=== PATIENT | female | born 1950 | race Caucasian/White ===

== ENCOUNTER 2020-01-29 19:50 | Emergency (ER) | payer MEDICARE ==
[~2020-01-29] VITALS: Ht 172.7 cm; Wt 137.9 kg
--- OUTSIDE RECORDS SUMMARY | 2020-01-29 19:52 | XMS REPORT | Clinical Summary ---
Author Author [facility] Organization [facility] Address Unknown Phone Unavailable Care Team Providers Care Water Plant Pump Operator Name Role Phone Jose Armando Davis MD PCP [phone] Allergies Comments Active Allergy Reactions Severity Noted Date Morphine GI 08/26/2019 Intolerance Medications End Date Status Medication Sig Dispensed Refills Start Date Active carvedilol (COREG) 25 MG Take 25 mg by 0 08/16 tablet mouth 2 (two) 9 times a day. Active hydroCHLOROthiazide Take 25 mg by 0 (HYDRODIURIL) 25 MG mouth every 9 tablet morning. Active NOVOLOG FLEXPEN U-100 ADM 30 UNI SC 1 07/19/20 1 INSULIN 100 unit/mL (3 TID 9 mL) insulin pen Active LANTUS SOLOSTAR U-100 ADM 160 UNI 6 07/30/20 1 INSULIN 100 unit/mL SC IN THE 9 injection (pen) MORNING UTD Active losartan (COZAAR) 100 MG Take 100 mg 3 08/08 tablet by mouth 9 daily. Active NIFEdipine CC (ADALAT CC) Take 30 mg by 0 07/27 30 MG 24 hr tablet mouth 2 (two) 9 times a day. Active HUMALOG KWIKPEN INSULIN INJECT 25 3 100 unit/mL injection pen UNITS SC TID 9 Active BD ULTRA-FINE MINI PEN U UTD FIVE 3 01 NEEDLE 31 gauge x 3/16" TIMES DAILY 9 needle 08/27/2019 diazePAM (VALIUM) 5 MG Take 1 tablet 1 tablet 0 1 tablet (5 mg total) 9 by mouth every 6 (six) hours as needed for anxiety (30 mins prior to MRI) for up to 1 day. Active Problems Not on file Encounters Care Team Description Date Type Specialty Romulo Dorado MD 09/19/2019 Telephone Gynecologic Oncolog y Romulo Dorado MD 08/26/2019 Lab Lab Romulo Dorado MD Endometrial cancer (HCC) (Primary Dx); Cervical mass 08/26/2019 Office Visit Gynecologic Oncolog y Rakesh Carrillo MD 07/15/2019 Documentation Quality Rakesh Crarillo MD 04/10/2019 Documentation Quality after 01/28/2019 Family History Medical History Relation Name Comments Bone cancer Sister Uterine cancer Sister Relation Name Status Comments Sister Social History Date Tobacco Use Types Packs/Day Years Used Never Smoker Smokeless Tobacco: Never Used Drinks/Week oz/Week Comments Alcohol Use Never Alcohol Habits Answer Date Recorded How often do you have a drink containing alcohol? Never 08/26/2019 How many drinks containing alcohol do you have on No t asked a typical day when you are drinking? How often do you have six or more drinks on one Not asked occasion? Sex Assigned at Date Recorded Not on file Industry Job Start Date Occupation Not on file Not on file Not on file Travel End Travel History Travel Start No recent travel history available. Last Filed Vital Signs Reading Time Taken Comments Vital Sign 154/67 08/26/2019 2:07 PM HADOOP ADMINISTRATOR Blood Pressure 89 08/26/2019 2:07 PM HADOOP ADMINISTRATOR Pulse - - Temperature - - Respiratory Rate - - Oxygen Saturation - - Inhaled Oxygen Concentration 137 kg (303 lb) 08/26/2019 2:07 PM HADOOP ADMINISTRATOR Weight 172.7 cm (5' 8") 08/26/2019 2:07 PM HADOOP ADMINISTRATOR Height 46.07 08/26/2019 2:07 PM HADOOP ADMINISTRATOR Body Mass Index Plan of Treatment Health Maintenance Due Date Last Done Comments DIABETIC RETINAL EYE EXAM 1949 DIABETIC FOOT EXAM 1959 BREAST CANCER SCREENING 1999 COLONOSCOPY SCREENING 1999 SHINGLES VACCINES (#1) 1999 65+ PNEUMOCOCCAL VACCINE 2014 (1 of 2 - PCV13) INFLUENZA VACCINE 04/25/2020 Procedures Comments Procedure Name Priority Date/Time Associated Diag nosis BIOPSY CERVIX Routine 08/26/2019 Cervical mass 3:00 PM HADOOP ADMINISTRATOR SURGICAL PATHOLOGY Routine 08/26/2019 REQUEST 8:43 AM HADOOP ADMINISTRATOR HEMOGLOBIN A1C Routine 05/13/2019 after 01/28/2019 Results * Biopsy cervix (08/26/2019 3:00 PM HADOOP ADMINISTRATOR) Narrative Performed At Romulo Dorado MD 09/10/2019 11:01 A M Biopsy cervix Date/Time: 08/26/2019 10:59 AM Performed by: Romulo Dorado MD Authorized by: Romulo Dorado MD Consent: Verbal consent obtained. Consent given by: patient Patient understanding: patient states u nderstanding of the procedure being performed Patient consent: the patient's understa nding of the procedure matches consent given Procedure consent: procedure consent ma tcprasanna procedure scheduled Patient identity confirmed: verbally wi th patient Local anesthesia used: no Anesthesia: Local anesthesia used: no Sedation: Patient sedated: no Comments: Cervical biopsy obtained with good hemostasis * Surgical pathology request (08/26/2019 8:43 AM HADOOP ADMINISTRATOR) [facility] DEPARTMENT OF PATHOLOGY AND GENOMIC MEDICINE Surgical See link below for PDF Lab [facility] DEPART [facility] pathology Report OF PATHOLOGY report AND GENOMIC MEDICINE Result status This is Final Report for [facility] DEPARTAZ NT [id number] OF PATHOLOGY AND GENOMIC MEDICINE Specimen Performing Organization Address City/State/[facility] Ph one Number [facility] DEPARTMENT OF [address] [place] [id number] PATHOLOGY AND GENOMIC MEDICINE * Hemoglobin A1c (05/13/2019) Hemoglobin A1C 7.7 % Specimen Blood after 01/28/2019 Insurance Type Payer Benefit Subscriber ID Effective Phone Address Plan / Dates Group O [employer] CIGNA xxxxxxxx [id number] [employer] resent [facility] MCR ADV Advance Directives For more information, please contact: [phone] 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
--- OUTSIDE RECORDS SUMMARY | 2020-01-29 19:52 | XMS REPORT | Encounter Summary ---
Author Organization Unknown Address [address] [place] [address] Phone [phone] Care Team Providers Care Classification Counselor Name Role Phone Dr. Jose Armando Davis 3 [phone] Reason for Visit Type II diabetes mellitus uncontrolled; Essential hypertension; diabetic foot exam; other - see typed reason Instructions 1. Morbid obesity learning about healthy weight 2. Screening for osteoporosis 3. Screening for malignant neoplasm of b reast 4. Vaccine refused by patient 5. Influenza vaccination declined 6. Screening for malignant neoplasm of c olon 7. Essential hypertension 8. Hyperlipidemia high cholesterol: care instructions lipid panel, serum 9. Type II diabetes mellitus uncontrolle d type 2 diabetes: care instructions HbA1c (hemoglobin A1c), blood microalbumin/creatinine, mass ratio, u rine 10. Endometrial carcinoma 11. Chronic kidney disease stage 3 12. Cellulitis of lower leg Bactrim DS 800 mg-160 mg tablet wound care referral Discussion Note will refer to wound care Plan of Care Patient Instructions continue all meds carvedilol/nifedipine qd Reminders Provider Appointments Return to Office on or around 02/08/2020 Eulogio Adams MD Lab HbA1C (Hemoglobin a1C), Blood 11/11/2019 [facility] Medical - Laboratory Microalbumin/creatinine, Mass Ratio, Urine 11/11 [facility] Medical - Laboratory Lipid Panel, Serum 11/11/2019 On License Of [facility] - Laboratory Referral Wound Care Referral 11/11/2019 Procedures None recorded. Surgeries None recorded. Imaging None recorded. Medications Name Start Date -81 daily Bactrim DS 800 mg-160 mg tablet Take 1 tablet every 12 hours by oral route. carvedilol 25 mg tablet Take 1 tablet twice a day by oral route. FreeStyle Lite Strips Take 1 strip 4 times a day by miscell. route for 30 days. hydrochlorothiazide 25 mg tablet TAKE 1 TABLET BY MOUTH EVERY DAY IN THE MORNING Lantus Solostar U-100 Insulin 100 unit/m L (3 mL) subcutaneous pen ADMINISTER 160 UNITS UNDER THE SKIN IN THE MORNING DIRECTED losartan 100 mg tablet TAKE 1 TABLET BY MOUTH EVERY DAY nifedipine ER 30 mg tablet,extended rele ase Take 1 tablet every day by oral route. Novolog Flexpen U-100 Insulin aspart 100 unit/mL (3 mL) subcutaneous Inject 90 units 3 times a day by sub-q route. 11/11/2019 triamcinolone acetonide 0.1 % topical cr eam APPLY A THIN LAYER TO THE AFFECTED AREA(S) BY TOPICAL ROUTE 2 TIMES PER DAY TRUEplus Pen Needle 31 gauge x 3/16" Take 1 needle 4 times a day by miscell. route. Medications Administered None recorded. Vitals Height Weight BMI Blood Pressure 5 ft 7.5 in 295 lbs 45.5 kg/m2 136/66 mm[Hg] Results Lab Results None recorded. Allergies Code Code System Name Reaction Severity Status Onset 7052 RxNorm Morphine Dizziness Mild Active Problems Name Status Onset Date Source Hyperlipidemia Active 02/11/2015 Type II Diabetes Mellitus Uncontrolled Active 5 Essential Hypertension Active 10/22/2015 Obstructive Sleep Apnea Syndrome Active 12/04/2015 Body Mass Index 40+ - Severely Obese Active 02/08/2017 Chronic Kidney Disease Stage 3 Active 10/09/2018 Myocardial Infarction Active 05/14/2019 Congestive Heart Failure Active 05/14/2019 Endometrial Carcinoma Active 09/21/2019 Hearing Loss Active 09/21/2019 Urinary Incontinence Active 09/21/2019 Anemia Active 10/19/2019 Procedures Date Name Performed by 09/25/2018 Extraction of Cataract Information not a vailable 09/25/2014 Eye Surgery Information not avai lable Vaccine List None recorded. Social History Tobacco Smoking Status Never Smoker Past Encounters 11/11/2019 Morbid Obesity; Screening for Osteoporosis; Screening for Malignant Neoplasm of Breast; Vaccine Refused by Patient; Influenza Vaccination Declined; Screening for Malignant Neoplasm of Colon; Essential Hypertension; Hyperlipidemia; Type II Diabetes Mellitus Uncontrolled; Endometrial Carcinoma; Chronic Kidney Disease Stage 3; Cellulitis of Lower Leg Eulogio Adams MD: [address] [place] [phone], Ph. History of Present Illness Note:f/u chronic conditions compliant with meds ,fbs 140's<div>followed oncologist q 3 w uterine cancer iv infusions recent lab-ckd 3</div><div>c/o 6 month h/o bl fore leg infection</div> Review of Systems:ROS as noted in the HPI Review of Systems None recorded. Physical Exam General Adult Exam (male) Reported By: Patient Constitutional: General Appearance: healthy- appearing, well-nourished, well- developed. Level of Distress: NAD. Ambulation: ambulating normally Psychiatric: Insight: good judgement. Men varun Status: active and alert, normal mood, normal affect. Orientation: to time, to place, to person. Memory: recent memory normal, remote memory normal Head: Head: normocephalic, atrauma tic ENMT: Ears: no lesions on external ear, EACs clear, TMs clear, TM mobility normal. Hearing: no hearing loss, Rinne AC>BC. Nose: no lesions on external nose, nares patent, no septal deviation, nasal passages clear, no sinus tenderness, no nasal discharge. Lips, Teeth, and Gums: no mouth or lip ulcers, no bleeding gums, normal dentition. Oropharynx: moist mucous membranes, no erythema, no exudates, tonsils not enlarged Neck: Neck: supple, trachea midlin e, no masses, FROM. Lymph Nodes: no cervical LAD, no supraclavicular LAD, no axillary LAD, no inguinal LAD. Thyroid: no enlargement, non-tender, no nodules Lungs: Respiratory effort: no dyspn ea. Percussion: no dullness, flatness, or hyperresonance. Auscultation: breath sounds normal, good air movement, CTA except as noted, no wheezing, no rales/crackles, no rhonchi Cardiovascular: Apical Impulse: not displace d. Heart Auscultation: RRR, normal S1, normal S2, no murmurs, no rubs, no gallops. Neck vessels: no carotid bruits. Pulses including femoral / pedal: normal throughout Skin: Inspection and palpation: ; bilat fore leg cellulitis
--- OUTSIDE RECORDS SUMMARY | 2020-01-29 19:52 | XMS REPORT | Encounter Summary ---
Author Organization Unknown Address [address] [place] [id number] Phone [phone] Care Team Providers Care Launch Operator Name Role Phone Dr. Jose Armando Davis 3 [phone] Reason for Visit Type II diabetes mellitus uncontrolled; vaginal problem Instructions 1. Abnormal vaginal bleeding gynecology referral 2. Type II diabetes mellitus uncontrolle d BD Ultra-Fine Mini Pen Needle 31 gauge x 3/16" type 2 diabetes: care instructions Novolog Flexpen U-100 Insulin aspart 1 00 unit/mL (3 mL) subcutaneous 3. Body mass index 30+ - obesity body mass index: care instructions learning about healthy weight 4. Anemia ferrous sulfate 325 mg (65 mg iron) ta blet Discussion Note: None recorded. Plan of Care Reminders Provider Appointments None recorded. Lab None recorded. Referral Gynecology Referral 07/17/2019 Procedures None recorded. Surgeries None recorded. Imaging None recorded. Medications Name Start Date BD Ultra-Fine Mini Pen Needle 31 gauge x 3/16" USE FIVE TIMES DAILY DIRECTED ferrous sulfate 325 mg (65 mg iron) tabl et Take 1 tablet twice a day by oral route. freestyle mis lancets freestyle mis lite freestyle calderon lite FreeStyle Lite Strips Take 1 strip 4 times a day by miscell. route for 30 days. hydrochlorothiazide 25 mg tabs lantus solostar 100 unit/ml sopn 160U QD losartan 100 mg tablet TAKE 1 TABLET BY MOUTH EVERY DAY nifedipine ER 30 mg tablet,extended rele ase TAKE 1 TABLET BY MOUTH TWICE DAILY Novolog Flexpen U-100 Insulin aspart 100 unit/mL (3 mL) subcutaneous [id number] UNITS UNDER THE SKIN THREE TIMES DAILY ofloxacin 0.3 % soln prednisolone acetate 1 % susp triamcinolone acetonide 0.1 % crea triamcinolone acetonide 0.1 % topical cr eam APPLY A THIN LAYER TO THE AFFECTED AREA(S) BY TOPICAL ROUTE 2 TIMES PER DAY Medications Administered None recorded. Vitals Height Weight BMI Blood Pressure 5 ft 7.5 in 307 lbs 47.4 kg/m2 130/54 mm[Hg] Results Lab Results None recorded. Allergies [...] Active 05/14/2019 Congestive Heart Failure Active 05/14/2019 Procedures Date Name Performed by 09/25/2018 Extraction of Cataract Information not a vailable 09/25/2014 Eye Surgery Information not avai lable Vaccine List None recorded. Social History Tobacco Smoking Status Never Smoker Past Encounters 07/17/2019 Abnormal Vaginal Bleeding; Type II Diabetes Mellitus Uncontrolled; Body Mass Index 30+ - Obesity; Anemia Edita Cordero MD: [facility], [place] [phone], Ph. History of Present Illness Note:Pt here with c/o vag bleeding for few months. she notes that it dark. she had gone through menopause in her 50s. She has hx fibroid uterus . she was supposed to have surgery in [place] when she was living in 2011. she did not have any bleeding for all these years but has noticed it in the last few months. <div>HER BG this am was 109. she thinks the novolog is helping her</div> Review of Systems:ROS as noted in the HPI Review of Systems None recorded. Physical Exam General Adult Exam (Female) Reported By: Patient Shingle Packer: Shingle Packer: present Constitutional: General Appearance: healthy- appearing Psychiatric: Insight: good judgement. Men varun Status: active and alert. Orientation: to time Head: Head: normocephalic Neck: Neck: supple. Lymph Nodes: n o cervical LAD. Thyroid: no enlargement Lungs: Respiratory effort: no dyspn ea. Auscultation: breath sounds normal Cardiovascular: Heart Auscultation: RRR. Pul ses including femoral / pedal: normal throughout Abdomen: Bowel Sounds: normal. Inspec tion and Palpation: soft, non-distended, no tenderness. Hernia: none palpable Skin: Inspection and palpation: no rash. Nails: normal Back: Thoracolumbar Appearance: no rmal curvature
--- OUTSIDE RECORDS SUMMARY | 2020-01-29 19:52 | XMS REPORT | Encounter Summary ---
Author Organization Unknown Address [address] [place] [address] Phone [phone] Care Team Providers Care Director Cardiovascular Name Role Phone Dr. Jose Armando Davis 3 [phone] Reason for Visit other - see typed reason Instructions 1. Adult health examination CBC w/ auto diff CMP, serum or plasma lipid panel, serum HbA1c (hemoglobin A1c), blood urinalysis complete, reflex culture microalbumin:creatinine ratio, urine hepatitis (A+B+C) panel, serum 2. Screening for malignant neoplasm of c olon colon cancer screening, stool 3. Body mass index 40+ - severely obese body mass index: care instructions learning about healthy weight 4. Benign essential hypertension losartan 100 mg tablet 5. Skin lesion triamcinolone acetonide 0.1 % topical cream Discussion Note: None recorded. Plan of Care Reminders Provider Appointments None recorded. Lab CBC W/ Auto Diff 05/13/2019 [facility] CMP, Serum or Plasma 05/13/2019 [facility] Lipid Panel, Serum 05/13/2019 [facility] HbA1C (Hemoglobin a1C), Blood 05/13/2019 [facility] Urinalysis Complete, Reflex Culture 05/13/2019 [facility] Microalbumin:creatinine Ratio, Urine 05/13/2019 [facility] Hepatitis (A+B+C) Panel, Serum 05/13/2019 [facility] Colon Cancer Screening, Stool 05/13/2019 Ex act [facility] (Cologuard Orders Only) Referral None recorded. Procedures None recorded. Surgeries None recorded. Imaging None recorded. Medications Name Start Date BD Ultra-Fine Mini Pen Needle 31 gauge x 3/16" USE 5 TIMES DAILY DIRECTED FreeStyle Lite Strips Take 1 strip 4 times a day by miscell. route for 30 days. losartan 100 mg tablet TAKE 1 TABLET BY MOUTH EVERY DAY Novolog Flexpen U-100 Insulin aspart 100 unit/mL (3 mL) subcutaneous ADMINISTER 20 UNITS UNDER THE SKIN THREE TIMES DAILY triamcinolone acetonide 0.1 % topical cr eam APPLY A THIN LAYER TO THE AFFECTED AREA(S) BY TOPICAL ROUTE 2 TIMES PER DAY Medications Administered None recorded. Vitals Height Weight BMI Blood Pressure 5 ft 7.5 in 307.2 lbs 47.4 kg/m2 (1) 179/76 mm[H g] (2) 138/80 mm[Hg] Lab Results None recorded. Allergies Code Code [...] Active 05/14/2019 Procedures Date Name Performed by 09/25/2014 Eye Surgery Information not avai lable Vaccine List None recorded. Social History Tobacco Smoking Status Never Smoker Past Encounters 05/13/2019 Adult Health Examination; Screening for Malignant Neoplasm of Colon; Body Mass Index 40+ - Severely Obese; Benign Essential Hypertension; Skin Lesion Jose Armando Davis MD: [address] [place] [phone], Ph. History of Present Illness Note:Anika is a 69 female mellituscoming in today for follow-up on her diabetes. Pt has no medical complaints that she would like to have addressed otherwise. Pt has bilateral lower extremity edema. Pt states that she has tried diuretics before and did not enjoy having to go to the restroom all the time. Pt has an ulcer on her lower left leg which she currently manages with triamcinolone. Pt states that she has had this lesion for the past 2 months but that it has been improving since her last visit. Pt denied headache, dizziness, fever, chest pain, shortness of breath, abdominal pain, changes in urinary frequency, weakness, fatigue, or tingling sensation in extremities. Pt declined mammogram referral. Review of Systems:ROS as noted in the HPI Review of Systems Comprehensive General Adult ROS Reported By: Patient Constitutional: Constitutional: no fever; Pt has an ulcer on her lower left leg which she currently manages with triamcinolone. Pt states that she has had this lesion for the past 2 months but that it has been improving since her last visit. Pt denied headache, dizziness, fever, chest pain, shortness of breath, abdominal pain, changes in urinary frequency, weakness, fatigue, or tingling sensation in extremities. Pt declined mammogram referral ENMT: Ears: no ear pain. Mouth/Thr oat: no sore throat Cardiovascular: Cardiovascular: no chest rafiq n Respiratory: Respiratory: no cough Gastrointestinal: Gastrointestinal: no abdomin al pain Genitourinary: Genitourinary: no hematuria, no increased frequency; burning with urination Musculoskeletal: Musculoskeletal: no muscle a ches, no back pain Integumentary: Skin: no rashes Neurologic: Neurologic: no dizziness, no headaches Hematologic/Lymphatic: Hematologic/Lymphatic no swo llen glands Allergic/Immunologic: Allergy/Immunologic: no sinu s pressure Physical Exam General Adult Exam (Female) Reported By: Patient Constitutional: General Appearance: healthy- appearing, well-nourished, well- developed. Ambulation: ambulating normally Psychiatric: Insight: good judgement. Men varun Status: active and alert. Orientation: to time, to place, to person Head: Head: atraumatic Lungs: Respiratory effort: no dyspn ea. Percussion: no dullness, flatness, or hyperresonance. Auscultation: no wheezing, no rales/crackles, no rhonchi Cardiovascular: Heart Auscultation: RRR, nor mal S1, normal S2, no murmurs; no S3. Neck vessels: no carotid bruits Abdomen: Bowel Sounds: normal. Inspec tion and Palpation: non-distended, no tenderness, no guarding, no CVA tenderness. Liver: no hepatomegaly. Hernia: none palpable Musculoskeletal:: Motor Strength and Tone: nor mal motor strength, normal tone. Joints, Bones, and Muscles: normal movement of all extremities. Extremities: no cyanosis, no varicosities, edema; Bilateral lower extremity edema Skin: Inspection and palpation: no rash, good turgor, no jaundice, ulcer; Ulcer of lower left leg
--- OUTSIDE RECORDS SUMMARY | 2020-01-29 19:52 | XMS REPORT ---
Author Author [facility] Organization [facility] Address Unknown Phone Unavailable Care Team Providers Care [employer] Professor Name Role Phone MOHAN HENRY Unavailable Unavailable Problems Condition Name Condition Details Condition Category Status Onset Date Resolution Date Last Treatment Date Treating Clinician Comments Anemia Anemia Problem Active 2019-10-19 00:00:00 Endometrial carcinoma Endometrial Carcinoma Problem Active 06-06-28 00:00:00 Hearing loss Hearing Loss Problem Active 2019-09-21 00:00:00 Urinary incontinence Urinary Incontinence Problem Active 00:00:00 Myocardial infarction Myocardial Infarction Problem Active 06-02-20 00:00:00 Congestive heart failure Congestive Heart Failure Problem Acti ve 2019-05-14 00:00:00 Chronic kidney disease stage 3 Chronic Kidney Disease Stage 3 Probl em Active 2018-10-09 00:00:00 Body mass index 40+ - severely obese Body Mass Index 40+ - S everely Obese Problem Active 2017-02-08 00:00:00 Obstructive sleep apnea syndrome Obstructive Sleep Apnea Syndrom e Problem Active 2015-12-04 00:00:00 Essential hypertension Essential Hypertension Problem Active 2015-10-22 00:00:00 Type II diabetes mellitus uncontrolled Type II Diabetes Jocelyne itus Uncontrolled Problem Active 2015-05-27 00:00:00 Hyperlipidemia Hyperlipidemia Problem Active 2015-02-11 00:00:00 Allergies, Adverse Reactions, Alerts Allergy Name Allergy Type Status Severity Reaction(s) Onset Date Inacti ve Date Treating Clinician Comments Morphine Allergy to substance Active Mild Dizziness Medications Ordered Medication Name Filled Medication Name Start Date Stop Da te Current Medication? Ordering Clinician Indication Dosage Frequency Signature (SIG) Comments Components Novolog Flexpen U-100 Insulin aspart 100 unit/mL (3 mL) subcutaneous Inject 90 units 3 times a day by sub-q route. Novolog Flexpen U-100 Insulin aspart 100 unit/mL (3 mL) subcutaneous Inject 90 units 3 times a day by sub-q route. 2019-11-11 00:00:00 No 90unit(s) TID Novolog Flexpen U-100 Insulin aspart 100 unit/mL (3 mL) subcutaneous Inject 90 units 3 times a day by sub-q route. Aspir-81 daily Aspir-81 daily No As pir-81 daily Bactrim DS 800 mg-160 mg tablet Take 1 tablet every 12 hours by oral route. Bactrim DS 800 mg-160 mg tablet Take 1 tablet every 12 hours by oral route. No 1 Q12H Bactrim DS 800 mg-160 mg tablet Take 1 tablet every 12 hours by oral route. carvedilol 25 mg tablet Take 1 tablet every day by ora l route. carvedilol 25 mg tablet Take 1 tablet every day by oral route. No 1 Q1D carvedilol 25 mg tablet Take 1 tablet every day by oral route. FreeStyle Lite Strips Take 1 strip 4 times a day by mi scell. route for 30 days. FreeStyle Lite Strips Take 1 strip 4 times a day by miscell. route for 30 days. No FreeStyle Lite Strips Take 1 strip 4 times a day by miscell. route for 30 days. hydrochlorothiazide 25 mg tablet TAKE 1 TABLET BY MOUTH EVERY DAY IN THE MORNING hydrochlorothiazide 25 mg tablet TAKE 1 TABLET BY MOUTH EVERY DAY IN THE MORNING No hydrochlorothiaz twila 25 mg tablet TAKE 1 TABLET BY MOUTH EVERY DAY IN THE MORNING Lantus Solostar U-100 Insulin 100 unit/m L (3 mL) subcutaneous pen ADMINISTER 160 UNITS UNDER THE SKIN IN THE MORNING DIRECTED Lantus Solostar U-100 Insulin 100 unit/mL (3 mL) subcutaneous pen ADMINISTER 160 UNITS UNDER THE SKIN IN THE MORNING DIRECTED No Lant us Solostar U-100 Insulin 100 unit/mL (3 mL) subcutaneous pen ADMINISTER 160 UNITS UNDER THE SKIN IN THE MORNING DIRECTED losartan 100 mg tablet TAKE 1 TABLET BY MOUTH EVERY DA Y losartan 100 mg tablet TAKE 1 TABLET BY MOUTH EVERY DAY No losartan 100 mg tablet TAKE 1 TABLET BY MOUTH EVERY DAY nifedipine ER 30 mg tablet,extended rele ase Take 1 tablet every day by oral route. nifedipine ER 30 mg tablet,extended rele ase Take 1 tablet every day by oral route. No 1 Q1D nifedipine E R 30 mg tablet,extended release Take 1 tablet every day by oral route. triamcinolone acetonide 0.1 % topical cr eam APPLY A THIN LAYER TO THE AFFECTED AREA(S) BY TOPICAL ROUTE 2 TIMES PER DAY triamcinolone acetonide 0.1 % topical cream APPLY A THIN LAYER TO THE AFFECTED AREA(S) BY TOPICAL ROUTE 2 TIMES PER DAY No triamcinolone ac etonide 0.1 % topical cream APPLY A THIN LAYER TO THE AFFECTED AREA(S) BY TOPICAL ROUTE 2 TIMES PER DAY TRUEplus Pen Needle 31 gauge x 3/16" Vineet e 1 needle 4 times a day by miscell. route. TRUEplus Pen Needle 31 gauge x 3/16" Vineet e 1 needle 4 times a day by miscell. route. No 1needle(s) QID TRUEp pawel Pen Needle 31 gauge x 3/16" Take 1 needle 4 times a day by miscell. route. Vital Signs Vital Name Observation Time Observation Value Comments BP Diastolic 2019-11-28 00:00:00 63 mm[Hg] Height 2019-11-28 00:00:00 67.5 [in_i] BP Systolic 2019-11-28 00:00:00 147 mm[Hg] Body Weight 2019-11-28 00:00:00 299.8 [lb_av] BP Diastolic 2019-11-11 00:00:00 66 mm[Hg] Height 2019-11-11 00:00:00 67.5 [in_i] BP Systolic 2019-11-11 00:00:00 136 mm[Hg] Body Weight 2019-11-11 00:00:00 295 [lb_av] BP Diastolic 2019-07-17 00:00:00 54 mm[Hg] Height 2019-07-17 00:00:00 67.5 [in_i] BP Systolic 2019-07-17 00:00:00 130 mm[Hg] Body Weight 2019-07-17 00:00:00 307 [lb_av] BP Diastolic 2019-05-13 00:00:00 76 mm[Hg] Height 2019-05-13 00:00:00 67.5 [in_i] BP Systolic 2019-05-13 00:00:00 179 mm[Hg] Body Weight 2019-05-13 00:00:00 307.2 [lb_av] Procedures and Interventions Procedure Date / Time Performed Performing Clinici an Extraction of Cataract 2018-09-25 00:00:00 Eye Surgery 2014-09-25 00:00:00 Encounters Start Date/Time End Date/Time Encounter Type Admission Type Attendi Clinicians Care Facility Care Department Encounter ID 2019-11-28 00:00:00 2019-11-28 00:00:00 Eulogio Adams MD: [id number] [place] [address], Ph. [facility] [id number] 2019-11-11 00:00:00 2019-11-11 00:00:00 Eulogio Adams MD: [id number] [place] [address], Ph. [facility] [id number] 2019-07-17 00:00:00 2019-07-17 00:00:00 Edita Cordero MD: [address], [place] [address], Ph. [facility] [id number] 2019-05-13 00:00:00 2019-05-13 00:00:00 Jose Armando everett MD: [address], [place] [address], Ph. [place] [facility] [id number] Results Test Description Test Time Test Comments Text Results Atomic Results Result Comments CT, CHEST, WITH IV CONTRAST 2019-12-06 11:17:00 FINAL REPORT EXAMINATION: CT of the chest, abdomen and pelvis with contrast. TECHNIQUE: Spiral CT images of the chest, abdomen and pelvis were performed from the lung apices to the lesser trochanters after the intravenous administration of 100 cc Isovue-300. Coronal and sagittal reformatted images were obtained. Dose modulation, iterative reconstruction, and/or weight based adjustment of the mA/kV was utilized to reduce the radiation dose to as low as reasonably achievable. COMPARISON: None. CLINICAL HISTORY: Malignant neoplasm overlapping sites of body of uterus DISCUSSION: CHEST: LINES/TUBES: Right internal jugular central venous port catheter tip terminates at the superior cavoatrial junction. LUNGS AND AIRWAYS: 4 mm noncalcified nodule in the periphery of the lingula seen on axial image 52. Bandlike atelectasis or fibrotic change in the inferior lingula. No additional suspicious nodules. Scattered foci of juxtapleural reticular and ground glass opacities likely representing atelectasis. Scattered foci of air trapping throughout the lungs. PLEURA: The pleural spaces are clear. HEART AND MEDIASTINUM: The visualized portions of the thyroid gland are unremarkable. Atherosclerotic calcification of the aortic arch and great vessel origins. Common origin of the innominate and left common carotid artery from the aortic arch.. No ectasia or aneurysmal dilatation of the thoracic aorta. Pulmonary outflow tract is of normal caliber. Prominent epicardial and mediastinal fat. No pericardial effusion. LYMPH NODES: Right paratracheal mediastinal lymph node measures 1.2 cm short axis. Otherwise no axillary, hilar, or mediastinal lymphadenopathy. BONES AND SOFT TISSUES: Discussed below. ABDOMEN/PELVIS: HEPATOBILIARY: No focal hepatic lesion or intrahepatic biliary ductal dilatation. The gallbladder has been removed. SPLEEN: No splenomegaly. PANCREAS: No focal masses or ductal dilatation. ADRENALS: No adrenal nodules. KIDNEYS/URETERS: Subcentimeter hypoattenuating lesions in both kidneys are too small to further characterize but likely to represent small cysts. No hydronephrosis or calculi. PELVIC ORGANS/BLADDER: The urinary bladder is unremarkable. Coarse calcifications at the uterine fundus. Small amount of gas within the uterine cavity presumably related to endometrial biopsy or hysteroscopy. Coarse left ovarian calcifications. No adnexal mass. PERITONEUM/RETROPERITONEUM: No free air or fluid. LYMPH NODES: Right external iliac lymph nodes measure 3.2 cm AP by 2.4 cm transverse (axial 106) and 1.3 cm AP by 1.7 cm transverse (axial 111). Left external iliac lymph node measures 7 mm short axis (axial image 108). 1.8 cm fluid attenuation lesion adjacent to the left side of the uterine body (axial 107) has average internal attenuation 0 Hounsfield units and may reflect a paraovarian or peritoneal inclusion cyst. No retroperitoneal or mesenteric lymphadenopathy. VESSELS: Diffuse atherosclerotic calcification of the abdominal aorta and major branch vessels most notably the splenic artery, without aneurysmal dilatation. The portal vein, splenic vein, and central superior mesenteric vein are patent. GI TRACT: The large bowel shows no distention or wall thickening. There are a few sigmoid diverticula without findings of diverticulitis. The appendix is not identified in keeping with prior appendectomy. The stomach is collapsed with prominent rugal folds. No small bowel dilatation to suggest obstruction. BONES AND SOFT TISSUES: No osseous destructive lesions. Multilevel degenerative disc changes and facet arthropathy of the lower cervical, thoracic, and lumbar spine. Postsurgical changes of the anterior abdominal wall. IMPRESSION: Small focus of air within the endometrial cavity presumably related to recent endometrial biopsy and/or hysteroscopic proc edure. Regional (right external iliac chain) metastatic lymphadenopathy as described. 4 mm lingular pulmonary nodule and single mildly enlarged mediastinal lymph node are indeterminate, though likely to be related to prior infectious or inflammatory process. Attention to these regions on follow-up imaging examinations is suggested. Otherwise no evidence of distant metastatic disease within the chest or abdomen. Incidental findings include atherosclerotic vascular disease and large bowel diverticulosis without evidence of diverticulitis. Signed: Gerry Gresham Verified Date/Time: 12/06/2019 1 1:17:41 Reading Location: [facility] Room [address] [place] [address] , ABDOMEN 2019-12-06 11:17:00 FINAL REPORT EXAMINATION: CT of the chest, abdomen and pelvis with contrast. TECHNIQUE: Spiral CT images of the chest, abdomen and pelvis were performed from the lung apices to the lesser trochanters after the intravenous administration of 100 cc Isovue-300. Coronal and sagittal reformatted images were obtained. Dose modulation, iterative reconstruction, and/or weight based adjustment of the mA/kV was utilized to reduce the radiation dose to as low as reasonably achievable. COMPARISON: None. CLINICAL HISTORY: Malignant neoplasm overlapping sites of body of uterus DISCUSSION: CHEST: LINES/TUBES: Right internal jugular central venous port catheter tip terminates at the superior cavoatrial junction. LUNGS AND AIRWAYS: 4 mm noncalcified nodule in the periphery of the lingula seen on axial image 52. Bandlike atelectasis or fibrotic change in the inferior lingula. No additional suspicious nodules. Scattered foci of juxtapleural reticular and ground glass opacities likely representing atelectasis. Scattered foci of air trapping throughout the lungs. PLEURA: The pleural spaces are clear. HEART AND MEDIASTINUM: The visualized portions of the thyroid gland are unremarkable. Atherosclerotic calcification of the aortic arch and great vessel origins. Common origin of the innominate and left common carotid artery from the aortic arch.. No ectasia or aneurysmal dilatation of the thoracic aorta. Pulmonary outflow tract is of normal caliber. Prominent epicardial and mediastinal fat. No pericardial effusion. LYMPH NODES: Right paratracheal mediastinal lymph node measures 1.2 cm short axis. Otherwise no axillary, hilar, or mediastinal lymphadenopathy. BONES AND SOFT TISSUES: Discussed below. ABDOMEN/PELVIS: HEPATOBILIARY: No focal hepatic lesion or intrahepatic biliary ductal dilatation. The gallbladder has been removed. SPLEEN: No splenomegaly. PANCREAS: No focal masses or ductal dilatation. ADRENALS: No adrenal nodules. KIDNEYS/URETERS: Subcentimeter hypoattenuating lesions in both kidneys are too small to further characterize but likely to represent small cysts. No hydronephrosis or calculi. PELVIC ORGANS/BLADDER: The urinary bladder is unremarkable. Coarse calcifications at the uterine fundus. Small amount of gas within the uterine cavity presumably related to endometrial biopsy or hysteroscopy. Coarse left ovarian calcifications. No adnexal mass. PERITONEUM/RETROPERITONEUM: No free air or fluid. LYMPH NODES: Right external iliac lymph nodes measure 3.2 cm AP by 2.4 cm transverse (axial 106) and 1.3 cm AP by 1.7 cm transverse (axial 111). Left external iliac lymph node measures 7 mm short axis (axial image 108). 1.8 cm fluid attenuation lesion adjacent to the left side of the uterine body (axial 107) has average internal attenuation 0 Hounsfield units and may reflect a paraovarian or peritoneal inclusion cyst. No retroperitoneal or mesenteric lymphadenopathy. VESSELS: Diffuse atherosclerotic calcification of the abdominal aorta and major branch vessels most notably the splenic artery, without aneurysmal dilatation. The portal vein, splenic vein, and central superior mesenteric vein are patent. GI TRACT: The large bowel shows no distention or wall thickening. There are a few sigmoid diverticula without findings of diverticulitis. The appendix is not identified in keeping with prior appendectomy. The stomach is collapsed with prominent rugal folds. No small bowel dilatation to suggest obstruction. BONES AND SOFT TISSUES: No osseous destructive lesions. Multilevel degenerative disc changes and facet arthropathy of the lower cervical, thoracic, and lumbar spine. Postsurgical changes of the anterior abdominal wall. IMPRESSION: Small focus of air within the endometrial cavity presumably related to recent endometrial biopsy and/or hysteroscopic proc edure. Regional (right external iliac chain) metastatic lymphadenopathy as described. 4 mm lingular pulmonary nodule and single mildly enlarged mediastinal lymph node are indeterminate, though likely to be related to prior infectious or inflammatory process. Attention to these regions on follow-up imaging examinations is suggested. Otherwise no evidence of distant metastatic disease within the chest or abdomen. Incidental findings include atherosclerotic vascular disease and large bowel diverticulosis without evidence of diverticulitis. Signed: Gerry Greshamepjason Verified Date/Time: 12/06/2019 1 1:17:41 Reading Location: [facility] Reading Room [address] [place] [address] -CREATININE 2019-12-06 09:44:00 POC-CREATININE (BEAKER) (test code = 1859) 1.3 mg/dL 0.6-1 .3 : TESTED AT [address] [address]: Medicinal Plant Picker/Bar Back ID = [id number] for CHACHA MCINTOSH POC-EGFR (BEAKER) (test code = 1860) 40 mL/min/1.73M2 Microalbumin/Creatinine [Mass Ratio] in [id number] 17:12:00* Test Item Value Reference Range Comments microalbumin random urine (test code = microalbumin random urine ) 184 ug/mL creatinine random urine (test code = creatinine random urine ) 146.6 mg/dL 20.0-320.0 microalbumin/creatinine (random urine) r atio calculated (test code = microalbumin/creatinine (random urine) ratio calculated) 125 mcg/mg creat Hemoglobin A1c/Hemoglobin.total in [id number] 15:16:00* Test Item Value Reference Range Comments Hemoglobin A1c/Hemoglobin.total in Blood (test code = 4548-4) 8. 2 % 1.0-5.7 average blood glucose (calculated) (test code = average blood glucose (calculated)) 189 mg/dL Lipid 1996 panel - Serum or [id number] 14:40:00* Test Item Value Reference Range Comments HDL (test code = HDL) 36 mg/dL triglyceride (test code = triglyceride) 171 mg/dL <150 VLDL (calculated) (test code = VLDL (calculated)) 34 mg/dL cholesterol/HDL ratio (test code = cholesterol/HDL ratio) 4.1 mg /dL non-HDL cholesterol (calculated) (test code = non-HDL cholesterol (calculated)) 112 mg/dL <160 cholesterol (test code = cholesterol) 148 mg/dL <200 Cholesterol in LDL [Mass/volume] in Serum or Plasma (t est code = 2089-1) 78 mg/dL <130 ANG, CV ACCESS, [id number] 09:42:00IR PORT PLACEMENTReason for Exam:-> NEOPLASMFINAL REPORT PROCEDURE: Venous Port Placement CLINICAL HISTORY: NEOPLASM GATE WATCH: Blanco Ventura DO, JD CHIP MUCKER: Portions of this procedure were assisted by the resident/fellow/PA under the direct supervision of the blast furnace operator. ANESTHESIA: Conscious sedation was provided by radiology nursing using constant hemodynamic monitoring for 45 Minutes. Versed IV 1 mg, Fentanyl IV 50 mcg. DEVICE: Single lumen 6 Fr PowerPort. DOSE INFORMATION - Ka,r: 48 mGy Estimated Blood Loss: < 5cc Samples: None. PROCEDURE: The risks, benefits, and alternatives to the procedure were discussed with the patient. All questions were answered and written informed consent was obtained. A universal timeout was performed prior to starting the procedure. For Prevention of Central Venous Catheter (CVC)-Related Bloodstream Infections all elements of maximal sterile barrier technique, hand hygiene, skin preparation and sterile techniques were followed. Ultrasound of the right internal jugular vein demonstrated a patent and compressible vessel. An ultras ound image of the vessel was obtained. Lidocaine was used for cutaneous anesthes ia. Under ultrasound guidance the vessel was accessed with a 19-gauge needle and through this a 0.035 inch 3J wire was positioned in the inferior vena cava. Ove r the wire a Peel-Away sheath was placed. I next directed my attention to the an terior chest wall which was anesthetized with 2% lidocaine. Below the clavicle a small linear incision was made with a #15 blade and a subcutaneous pocket was c reated with blunt and sharp dissection. The catheter was connected to the port a nd the port was placed in the pocket. Through the pocket a subcutaneous track wa s created with a metallic tunneling device and the port catheter was brought thr ough the incision and out the venotomy site. The catheter was cut to the appropr iate length. Through the Peel-Away sheath the port catheter was positioned with its tip at the right atrium under fluoroscopic guidance. The Peel-Away sheath wa s removed. The port was accessed and demonstrated excellent blood return and flu shed easily. The port was instilled with 5 mL of heparin at 100 units per mL. Th e incision was then closed with subcuticular/deep suture. The skin at the venoto my site and the incision site were subsequently closed with Dermabond, Steri-Str ips and sterile dressings. The patient tolerated the procedure well and was retu rned to the recovery area/floor in stable condition. IMPRESSION:Ultrasound and f luoroscopically guided placement of a right internal jugular single lumen port. The port is ready for use immediately. Signed: Blanco Ventura MDReport Verified D ate/Time: 10/08/2019 09:42:46 Reading Location: [facility] Radiology Reading Room E lectronically signed by: BLANCO VENTURA DO on 10/08/2019 09:42 AM [id number] 11:55:00* Test Item Value Reference Range Comments PARTIAL THROMBOPLASTIN TIME (BEAKER) (test code = 760) 28.3 seco nds 22.5-36.0 PROTHROMBIN TIME/[id number] 11:54:00* Test Item Value Reference Range Comments PROTIME (BEAKER) (test code = 759) 14.7 seconds 11.9-14.2 INR (BEAKER) (test code = 370) 1.2 <=5.9 Effective 02/20/2019: PT Reference Range ChangeNew: 11.9-14.2 Previous: 11.7-14. 7RECOMMENDED COUMADIN/WARFARIN INR THERAPY RANGESSTANDARD DOSE: 2.0-3.0 Include s: PROPHYLAXIS for venous thrombosis, systemic embolization; TREATMENT for venou s thrombosis and/or pulmonary embolus.HIGH RISK: Target INR is 2.5-3.5 for patie nts wiht mechanical heart valves.CBC W/PLT COUNT & AUTO [id number] 11:49:00* Test Item Value Reference Range Comments WHITE BLOOD CELL COUNT (BEAKER) (test code = 775) 9.9 K/ L 3.5-10.5 RED BLOOD CELL COUNT (BEAKER) (test code = 761) 3.14 M/ L 3.93-5.22 HEMOGLOBIN (BEAKER) (test code = 410) 7.2 GM/DL 11.2-15.7 HEMATOCRIT (BEAKER) (test code = 411) 25.0 % 34.1-44.9 MEAN CORPUSCULAR VOLUME (BEAKER) (test code = 753) 79.6 fL 79.4-94.8 MEAN CORPUSCULAR HEMOGLOBIN (BEAKER) (test code = 751) 22.9 pg 25.6-32.2 MEAN CORPUSCULAR HEMOGLOBIN CONC (BEAKER) (test code = 752) 28.8 GM/DL 32.2-35.5 RED CELL DISTRIBUTION WIDTH (BEAKER) (test code = 412) 16.4 % 11.7-14.4 PLATELET COUNT (BEAKER) (test code = 756) 339 K/CU MM 150-45 0 MEAN PLATELET VOLUME (BEAKER) (test code = 754) 9.6 fL 9.4-12.3 NUCLEATED RED BLOOD CELLS (BEAKER) (test code = 413) 0 /100 WBC 0-0 NEUTROPHILS RELATIVE PERCENT (BEAKER) (test code = 429) 85 % LYMPHOCYTES RELATIVE PERCENT (BEAKER) (test code = 430) 9 % MONOCYTES RELATIVE PERCENT (BEAKER) (test code = 431) 5 % EOSINOPHILS RELATIVE PERCENT (BEAKER) (test code = 432) 1 % BASOPHILS RELATIVE PERCENT (BEAKER) (test code = 437) 0 % NEUTROPHILS ABSOLUTE COUNT (BEAKER) (test code = 670) 8.42 K/ L 1.56-6.13 LYMPHOCYTES ABSOLUTE COUNT (BEAKER) (test code = 414) 0.84 K/ L 1.18-3.74 MONOCYTES ABSOLUTE COUNT (BEAKER) (test code = 415) 0.49 K/ L 0.24-0.36 EOSINOPHILS ABSOLUTE COUNT (BEAKER) (test code = 416) 0.07 K/ L 0.04-0.36 BASOPHILS ABSOLUTE COUNT (BEAKER) (test code = 417) 0.03 K/ L 0.01-0.08 IMMATURE GRANULOCYTES-RELATIVE PERCENT (BEAKER) (test code = 280 1) 0 % 0-1
--- OUTSIDE RECORDS SUMMARY | 2020-01-29 19:52 | XMS REPORT | Clinical Summary ---
Author Author LARY [facility] Address Unknown Phone Unavailable Care Team Providers Care Caustic Cresylate Shift Superintendent Name Role Phone Jose Armando Davis PCP [phone] Allergies Comments Active Allergy Reactions Severity Noted Date Morphine Nausea And 10/07/2019 Vomiting Medications End Date Status Medication Sig Dispensed Refills Start Date Active losartan (COZAAR) 100 MG Take 100 mg 0 tablet by mouth daily. Active aspirin 81 MG chewable Take 81 mg by 0 tablet mouth daily. Active hydroCHLOROthiazide Take 25 mg by 0 (HYDRODIURIL) 25 MG mouth daily. tablet Active carvedilol (COREG) 25 MG Take 25 mg by 0 tablet mouth 2 (two) times daily with breakfast and dinner. Active insulin aspart U-100 Inject 90 0 (NOVOLOG) 100 unit/mL Units injection subcutaneousl y 3 (three) times daily before meals. Active insulin glargine (LANTUS) Inject 160 0 100 unit/mL injection Units subcutaneousl y nightly Use as directed . Status Hospital, Clinic, or Ordered Dose Route Frequency Start End Date Other Facility Date Administered Medication Active sodium chloride 0.9% (NS) IV Once infusion 20 Ended sodium chloride 0.9% (NS) IV Once 10/11/19 infusion 20 0 Ended diphenhydrAMINE 25 mg IV Once 10/11/19 02 (BENADRYL) injection 25 20 0 mg Ended acetaminophen (TYLENOL) 650 mg Oral Once 10/11/19 tablet 650 mg 20 0 Ended furosemide (LASIX) 10 mg IV Once 10/11/1909/25 injection 10 mg 20 0 Ended sodium chloride 0.9% (NS) 10 mL Cath Once 10/11/19 flush 10 mL 20 0 Ended heparin (PF) 100 unit/mL 500 Units Cath Once 10/11/19 injection syringe 500 20 0 Units Active Problems Not on file Encounters Care Team Description Date Type Specialty Boubacar Snyder MD Hx of cyclophosphamide therapy (Primary Dx); History of chemotherapy; 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); Malignant neoplasm of overlapping sites of body of uterus (HCC) 01/29/2020 Outside Orders Central Scheduling Boubacar Snyder MD 1, [facility] [address] Room Malignant neoplasm of overlapping sites of body of uterus (HCC) 12/06/2019 [facility] Computed Tomography Encounter Boubacar Snyder MD 1, [facility] [address] Room Malignant neoplasm of overlapping sites of body of uterus (HCC) 12/06/2019 [facility] Computed Tomography Encounter Boubacar Snyder MD Malignant neoplasm of overlapping sites of body of uterus (HCC) (Primary Dx) 11/25/2019 Outside Orders Central Scheduling Boubacar Snyder MD 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); 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 Infusion Oncology Boubacar Snyder MD Anemia, unspecified type 10/10/2019 Infusion Oncology Boubacar Snyder MD History of cancer chemotherapy; Uterus cancer, 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 Last Filed Vital Signs Time Taken Vital Sign Reading 10/11/2019 1:40 PM WIRE INSPECTOR Blood Pressure 168/67 10/11/2019 1:40 PM WIRE INSPECTOR Pulse 76 10/11/2019 1:40 PM WIRE INSPECTOR Temperature 36.3 C (97.3 F) 10/11/2019 1:40 PM WIRE INSPECTOR Respiratory Rate 18 10/11/2019 1:40 PM WIRE INSPECTOR Oxygen Saturation 99% - Inhaled Oxygen - Concentration 10/10/2019 10:49 AM WIRE INSPECTOR Weight 134.4 kg (296 lb 6.4 oz) 10/10/2019 10:49 AM WIRE INSPECTOR Height 172.7 cm (5' 8") 10/10/2019 10:49 AM WIRE INSPECTOR Body Mass Index 45.07 Plan of Treatment Care Team Description Date Type Specialty Boubacar Snyder MD [address], [address] [place] [address] 1, [facility] Room 02/13/2020 Appointment Computed Tomography Boubacar Snyder MD [address], [address] [place] [address] 1, [facility] [address] Room 02/13/2020 Appointment Computed Tomography Procedures Comments Procedure Name Priority Date/Time Associated Diag nosis CT ABDOMEN/PELVIS WITH IV Routine 12/06/2019 Etelvina gnant neoplasm of CONTRAST 10:09 AM CDT overlapping sites o f body of uterus (HCC) CT CHEST WITH IV CONTRAST Routine 12/06/2019 Etelvina gnant neoplasm of 10:09 AM CDT overlapping sites of body of uterus (HCC) POCT-CREATININE Routine 12/06/2019 9:31 AM CDT TRANSFUSION SERVICE 10/13/2019 REPORT - SCAN 6:02 PM WIRE INSPECTOR PREPARE LEUKO-REDUCED RBC Routine 10/12/2019 Anem ia in neoplastic 11:54 PM WIRE INSPECTOR disease TRANSFUSION SERVICE 10/11/2019 REPORT - SCAN 6:04 PM WIRE INSPECTOR TRANSFUSION SERVICE 10/11/2019 REPORT - SCAN 6:04 PM WIRE INSPECTOR TRANSFUSE LEUKO-REDUCED Routine 10/11/2019 Anemia in neoplastic RED BLOOD CELLS 3:54 PM WIRE INSPECTOR disease TRANSFUSE LEUKO-REDUCED Routine 10/11/2019 Anemia in neoplastic RED BLOOD CELLS 11:01 AM WIRE INSPECTOR disease TYPE AND SCREEN, Routine 10/10/2019 AUTOMATED 10:45 AM WIRE INSPECTOR IR CV ACCESS FLUORO Routine 10/07/2019 History of cancer 4:16 PM WIRE INSPECTOR chemotherapy Uterus cancer, sarcoma (HCC) CBC W/PLT COUNT & AUTO Routine 10/07/2019 DIFFERENTIAL 11:15 AM WIRE INSPECTOR CBC W/PLT COUNT & AUTO Routine 10/07/2019 DIFFERENTIAL 11:15 AM WIRE INSPECTOR PROTHROMBIN TIME/INR Routine 10/07/2019 11:15 AM WIRE INSPECTOR APTT Routine 10/07/2019 11:15 AM WIRE INSPECTOR after 01/28/2019 Results * CT Abdomen/Pelvis with IV Contrast (12/06/2019 10:09 AM CDT) Specimen Narrative Performed At FINAL REPORT [facility] EXAMINATION: CT of the chest, abdomen a nd pelvis with contrast. TECHNIQUE:Spiral CT images of the c hest, abdomen and pelvis were performed from the lung apices to the l gael trochanters after the intravenous administration of 100 cc Is ovue-300. Coronal and sagittal reformatted images were obtained. Dose modulation, iterative reconstructi on, and/or weight based adjustment of the mA/kV was utilized to reduce the radiation dose to as low as reasonably achievable. COMPARISON:None. CLINICAL HISTORY: Malignant neoplasm ov erlapping sites of body of uterus DISCUSSION: CHEST: LINES/TUBES:Right internal jugular central venous port catheter tip terminates at the superior cavoatrial j unction. LUNGS AND AIRWAYS:4 mm noncalcified nodule in the periphery of the lingula seen on axial image 52. Bandlik e atelectasis or fibrotic change in the inferior lingula. No joycelyn tional suspicious nodules. Scattered foci of juxtapleural reticula r and ground glass opacities likely representing atelectasis. Scatte red foci of air trapping throughout the lungs. PLEURA: The pleural spaces are clear. HEART AND MEDIASTINUM: The visualized p ortions of the thyroid gland are unremarkable. Atherosclerotic calci fication of the aortic arch and great vessel origins. Common origin of the innominate and left common carotid artery from the aortic a rch.. No ectasia or aneurysmal dilatation of the thoracic aorta. Pulmo nary outflow tract is of normal caliber. Prominent epicardial an d mediastinal fat. No pericardial effusion. LYMPH NODES: Right paratracheal mediast inal lymph node measures 1.2 cm short axis. Otherwise no axillary, h ilar, or mediastinal lymphadenopathy. BONES AND SOFT TISSUES: Discussed below . ABDOMEN/PELVIS: HEPATOBILIARY: No focal hepatic lesion or intrahepatic biliary ductal dilatation. The gallbladder has been re moved. SPLEEN: No splenomegaly. PANCREAS: No focal masses or ductal dil atation. ADRENALS: No adrenal nodules. KIDNEYS/URETERS: Subcentimeter hypoatte nuating lesions in both kidneys are too small to further charac terize but likely to represent small cysts. No hydronephrosis or calcu li. PELVIC ORGANS/BLADDER: The urinary blad richard is unremarkable. Coarse calcifications at the uterine fundus. S mall amount of gas within the uterine cavity presumably related to en dometrial biopsy or hysteroscopy. Coarse left ovarian calci fications. No adnexal mass. PERITONEUM/RETROPERITONEUM: No free air or fluid. LYMPH NODES: Right external iliac lymph nodes measure 3.2 cm AP by 2.4 cm transverse (axial 106) and 1.3 c m AP by 1.7 cm transverse (axial 111). Left external iliac lymph node measures 7 mm short axis (axial image 108). 1.8 cm fluid attenua tion lesion adjacent to the left side of the uterine body (axial 10 7) has average internal attenuation 0 Hounsfield units and may reflect a paraovarian or peritoneal inclusion cyst. No retroperi toneal or mesenteric lymphadenopathy. VESSELS: Diffuse atherosclerotic calcif ication of the abdominal aorta and major branch vessels most notably t he splenic artery, without aneurysmal dilatation. The portal vein, splenic vein, and central superior mesenteric vein are patent. GI TRACT: The large bowel shows no dist ention or wall thickening. There are a few sigmoid diverticula wit hout findings of diverticulitis. The appendix is not twila ntified in keeping with prior appendectomy. The stomach is collapsed with prominent rugal folds. No small bowel dilatation to suggest obstr uction. BONES AND SOFT TISSUES: No osseous dest ructive lesions. Multilevel degenerative disc changes and facet art hropathy of the lower cervical, thoracic, and lumbar spine. P ostsurgical changes of the anterior abdominal wall. IMPRESSION: Small focus of air within the endometri al cavity presumably related to recent endometrial biopsy and/or hys teroscopic procedure. Regional (right external iliac chain) m etastatic lymphadenopathy as described. 4 mm lingular pulmonary nodule and sing le mildly enlarged mediastinal lymph node are indeterminate, though li candy to be related to prior infectious or inflammatory process. Att ention to these regions on follow-up imaging examinations is sugge sted. Otherwise no evidence of distant metast atic disease within the chest or abdomen. Incidental findings include atheroscler otic vascular disease and large bowel diverticulosis without evid ence of diverticulitis. Signed: Gerry Gresham MD Report Verified Date/Time: 0 11:17:41 Reading Location: [place] Reading Ro om 1 - B01.627 Procedure Note Interface, External Ris In - 12/06/2019 11:19 AM CDT FINAL REPORT EXAMINATION: CT of the chest, [...] transverse (axial 111). Left external iliac lymph n ode measures 7 mm short axis (axial image 108). 1.8 cm fluid attenuat ion lesion adjacent to the left side of [...] related to recent endometrial biopsy and/or hysteroscopic procedure. Regional (right external iliac chain) metastatic lymphadenopathy as described. 4 mm lingular pulmonary nodule and singl e mildly enlarged mediastinal lymph node are indeterminate, though likely to be related to prior infectious or inflammatory process. Attention to these regions on follow-up imaging examinations is suggested. Otherwise no evidence of distant metastatic disease within the chest or abdomen. Incidental findings include atherosclerotic vascular disease and large bowel diverticulosis without evidence of diverticulitis. Signed: Gerry Gresham MD Report Verified Date/Time: 12/06/2019 11:17:41 Reading Location: [facility] Reading Room 1 - B01.627 Performing Organization Address City/State/Zipcode Ph one Number GE RIS * CT Chest with IV Contrast (12/06/2019 10:09 AM CDT) Specimen Narrative Performed At FINAL REPORT [facility] EXAMINATION: CT of the chest, abdomen a nd pelvis with contrast. TECHNIQUE:Spiral CT images of the c hest, abdomen and pelvis were performed from the lung apices to the l gael trochanters after the intravenous administration of 100 cc Is ovue-300. Coronal and sagittal reformatted images were obtained. Dose modulation, iterative reconstructi on, and/or weight based adjustment of the mA/kV was utilized to reduce the radiation dose to as low as reasonably achievable. COMPARISON:None. CLINICAL HISTORY: Malignant neoplasm ov erlapping sites of body of uterus DISCUSSION: CHEST: LINES/TUBES:Right internal jugular central venous port catheter tip terminates at the superior cavoatrial j unction. LUNGS AND AIRWAYS:4 mm noncalcified nodule in the periphery of the lingula seen on axial image 52. Bandlik e atelectasis or fibrotic change in the inferior lingula. No joycelyn tional suspicious nodules. Scattered foci of juxtapleural reticula r and ground glass opacities likely representing atelectasis. Scatte red foci of air trapping throughout the lungs. PLEURA: The pleural spaces are clear. HEART AND MEDIASTINUM: The visualized p ortions of the thyroid gland are unremarkable. Atherosclerotic calci fication of the aortic arch and great vessel origins. Common origin of the innominate and left common carotid artery from the aortic a rch.. No ectasia or aneurysmal dilatation of the thoracic aorta. Pulmo nary outflow tract is of normal caliber. Prominent epicardial an d mediastinal fat. No pericardial effusion. LYMPH NODES: Right paratracheal mediast inal lymph node measures 1.2 cm short axis. Otherwise no axillary, h ilar, or mediastinal lymphadenopathy. BONES AND SOFT TISSUES: Discussed below . ABDOMEN/PELVIS: HEPATOBILIARY: No focal hepatic lesion or intrahepatic biliary ductal dilatation. The gallbladder has been re moved. SPLEEN: No splenomegaly. PANCREAS: No focal masses or ductal dil atation. ADRENALS: No adrenal nodules. KIDNEYS/URETERS: Subcentimeter hypoatte nuating lesions in both kidneys are too small to further charac terize but likely to represent small cysts. No hydronephrosis or calcu li. PELVIC ORGANS/BLADDER: The urinary blad richard is unremarkable. Coarse calcifications at the uterine fundus. S mall amount of gas within the uterine cavity presumably related to en dometrial biopsy or hysteroscopy. Coarse left ovarian calci fications. No adnexal mass. PERITONEUM/RETROPERITONEUM: No free air or fluid. LYMPH NODES: Right external iliac lymph nodes measure 3.2 cm AP by 2.4 cm transverse (axial 106) and 1.3 c m AP by 1.7 cm transverse (axial 111). Left external iliac lymph node measures 7 mm short axis (axial image 108). 1.8 cm fluid attenua tion lesion adjacent to the left side of the uterine body (axial 10 7) has average internal attenuation 0 Hounsfield units and may reflect a paraovarian or peritoneal inclusion cyst. No retroperi toneal or mesenteric lymphadenopathy. VESSELS: Diffuse atherosclerotic calcif ication of the abdominal aorta and major branch vessels most notably t he splenic artery, without aneurysmal dilatation. The portal vein, splenic vein, and central superior mesenteric vein are patent. GI TRACT: The large bowel shows no dist ention or wall thickening. There are a few sigmoid diverticula wit hout findings of diverticulitis. The appendix is not twila ntified in keeping with prior appendectomy. The stomach is collapsed with prominent rugal folds. No small bowel dilatation to suggest obstr uction. BONES AND SOFT TISSUES: No osseous dest ructive lesions. Multilevel degenerative disc changes and facet art hropathy of the lower cervical, thoracic, and lumbar spine. P ostsurgical changes of the anterior abdominal wall. IMPRESSION: Small focus of air within the endometri al cavity presumably related to recent endometrial biopsy and/or hys teroscopic procedure. Regional (right external iliac chain) m etastatic lymphadenopathy as described. 4 mm lingular pulmonary nodule and sing le mildly enlarged mediastinal lymph node are indeterminate, though li candy to be related to prior infectious or inflammatory process. Att ention to these regions on follow-up imaging examinations is sugge sted. Otherwise no evidence of distant metast atic disease within the chest or abdomen. Incidental findings include atheroscler otic vascular disease and large bowel diverticulosis without evid ence of diverticulitis. Signed: Gerry Gresham MD Report Verified Date/Time: 0 11:17:41 Reading Location: [place] [facility] Reading Ro om 1 - B01.627 Procedure Note Interface, External Ris In - 12/06/2019 11:19 AM CDT FINAL REPORT EXAMINATION: CT of the chest, [...] transverse (axial 111). Left external iliac lymph n ode measures 7 mm short axis (axial image 108). 1.8 cm fluid attenuat ion lesion adjacent to the left side of [...] related to recent endometrial biopsy and/or hysteroscopic procedure. Regional (right external iliac chain) metastatic lymphadenopathy as described. 4 mm lingular pulmonary nodule and singl e mildly enlarged mediastinal lymph node are indeterminate, though likely to be related to prior infectious or inflammatory process. Attention to these regions on follow-up imaging examinations is suggested. Otherwise no evidence of distant metastatic disease within the chest or abdomen. Incidental findings include atherosclerotic vascular disease and large bowel diverticulosis without evidence of diverticulitis. Signed: Gerry Gresham MD Report Verified Date/Time: 12/06/2019 11:17:41 Reading Location: [facility] Reading Room [address] [place] [address] Performing Organization Address City/State/Zipcode Ph one Number GE RIS * POC-Creatinine (12/06/2019 9:31 AM CDT) POC-Creatinine 1.3Comment: : TESTED AT [facility] 0.6 - 1.3 mg/dL [place] [id number] [place] [address]: Adult Psychiatrist/Boat Repairer ID = [id number] for CHACHA MCINTOSH POC-EGFR 40 mL/min/1.73M2 [facility] Specimen Blood Performing Organization Address [facility] one Number [address] [facility] * TRANSFUSION SERVICE REPORT - SCAN (10/13/2019 6:02 PM WIRE INSPECTOR) Only the most recent of 3 results within the time period is included. Narrative Performed At This result has an attachment that is n ot available. * Prepare Leuko-Red RBC (10/12/2019 11:54 PM WIRE INSPECTOR) Unit ABO O Pos SAFETRACE TX UNIT NUMBER [id number] SAFETRACE TX Status TX_TIMEINCHART SAFETRACE TX Blood Bank Product RED BLOOD CELLS SAFETRACE TX PRODUCT CODE [id number] SAFETRACE TX Unit ABO O Pos SAFETRACE TX UNIT NUMBER [id number] SAFETRACE TX Status TX_TIMEINCHART SAFETRACE TX Blood Bank Product RED BLOOD CELLS SAFETRACE TX PRODUCT CODE [id number] SAFETRACE TX CROSSMATCH COMPATIBLE SAFETRACE TX CROSSMATCH COMPATIBLE SAFETRACE TX Specimen Other Performing Organization Address [facility] one Number SAFETRACE [place] * Transfuse Leuko-Red RBC (10/11/2019 3:54 PM WIRE INSPECTOR) Only the most recent of 3 results within the time period is included. * Type and screen, automated (10/10/2019 10:45 AM WIRE INSPECTOR) ABO/RH AUTOMATED (BEAKER) O POSITIVE [facility] Ab Scrn NEGATIVE [facility] Specimen Blood Performing Organization Address [facility] Ph one Number [facility] [address] [place] [address] [facility] * IR CV Access Fluoro (10/07/2019 4:16 PM WIRE INSPECTOR) Specimen Narrative Performed At FINAL REPORT [facility] PROCEDURE: Venous Port Placement CLINICAL HISTORY: NEOPLASM INTEGRATION PROJECT MANAGER: Juma Ventura DO, JD FIBERGLASS LAMINATOR: Portions of this procedure w ere assisted by the resident/fellow/PA under the direct sup ervision of the continuous washer operator. ANESTHESIA:Conscious sedation was p rovided by radiology nursing using constant hemodynamic monitoring f or 45 Minutes. Versed IV 1 mg, Fentanyl IV 50 mcg. DEVICE: Single lumen 6 Fr PowerPort. DOSE INFORMATION - Ka,r:48 mGy Estimated Blood Loss: < 5cc Samples: None. PROCEDURE: The risks, benefits, and alt ernatives to the procedure were discussed with the patient.All questions were answered and written informed consent was obtained. A universal timeout was performed prior to starting the procedu re.For Prevention of Central Venous Catheter (CVC)-Related Bloodstre am Infections all elements of maximal sterile barrier technique, hand hygiene, skin preparation and sterile techniques were followed. Ultrasound of the right internal jugula r vein demonstrated a patent and compressible vessel. An ultrasound image of the vessel was obtained. Lidocaine was used for cutane ous anesthesia. Under ultrasound guidance the vessel was acce ssed with a 19-gauge needle and through this a 0.035 inch 3J wire w as positioned in the inferior vena cava. Over the wire a Peel-Away sh eath was placed. I next directed my attention to the anterior c hest wall which was anesthetized with 2% lidocaine. Below t he clavicle a small linear incision was made with a #15 blade and a subcutaneous pocket was created with blunt and sharp dissection . The catheter was connected to the port and the port was placed in the pocket. Through the pocket a subcutaneous track was created with a metallic tunneling device and the port catheter was brought through t he incision and out the venotomy site. The catheter was cut to the appropriate length. Through the Peel-Away sheath the port c atheter was positioned with its tip at the right atrium under fluor oscopic guidance. The Peel-Away sheath was removed. The port was accessed and demonstrated excellent blood return and flushed easily. The port was instilled with 5 mL of heparin at 100 units per mL. The incision was then zheng sed with subcuticular/deep suture. The skin at the venotomy site a nd the incision site were subsequently closed with Dermabond, Bill ri-Strips and sterile dressings. The patient tolerated the pr ocedure well and was returned to the recovery area/floor in stable co ndition. IMPRESSION: Ultrasound and fluoroscopically guided placement of a right internal jugular single lumen port. The port is ready for use immediately. Signed: Juma Ventura MD Report Verified Date/Time: 0 09:42:46 Reading Location: [facility] Radiology [facility] Room Procedure Note Interface, External Ris In - 10/08/2019 9:45 AM WIRE INSPECTOR FINAL REPORT PROCEDURE: Venous Port Placement CLINICAL HISTORY: NEOPLASM INTEGRATION PROJECT MANAGER: Juma Ventura DO, JD FIBERGLASS LAMINATOR: Portions of this procedure were assisted by the resident/fellow/PA under the direct supervision of the continuous washer operator. ANESTHESIA: Conscious sedation was provided by [...] demonstrated a patent and compressible vessel. An ultrasound image of the vessel was obtained. Lidocaine was used for cutaneous anesthesia. Under ultrasound guidance the vessel was accessed with a 19-gauge needle and through this a 0.035 inch 3J wire was positioned in the inferior vena cava. Over the wire a Peel-Away sheath was placed. I next directed my attention to the anterior chest wall which was anesthetized with 2% lidocaine. Below the clavicle a small linear incision was made with a #15 blade and a subcutaneous pocket was created with blunt and sharp dissection. The catheter was connected to the port and the port was placed in the pocket. Through the pocket a subcutaneous track was created with a metallic tunneling device and the port catheter was brought through the incision and out the venotomy site. The catheter was cut to the appropriate length. Through the Peel-Away sheath the port catheter was positioned with its tip at the right atrium under fluoroscopic guidance. The Peel-Away sheath was removed. The port was accessed and demonstrated excellent blood return and flushed easily. The port was instilled with 5 mL of heparin at 100 units per mL. The incision was then closed with subcuticular/deep suture. The skin at the venotomy site and the incision site were subsequently closed with Dermabond, Steri-Strips and sterile dressings. The patient tolerated the procedure well and was returned to the recovery area/floor in stable condition. IMPRESSION: Ultrasound and fluoroscopically guided placement of a right internal jugular single lumen port. The port is ready for use immediately. Signed: Juma Ventura MD Report Verified Date/Time: 10/08/2019 09:42:46 Reading Location: [facility] Radiology Reading Room Performing Organization Address City/State/Zipcode Ph one Number GE RIS * CBC with platelet count + automated diff (10/07/2019 11:15 AM WIRE INSPECTOR) WBC 9.9 3.5 - 10.5 K/L [facility] RBC 3.14 (L) 3.93 - 5.22 M/L [facility] Hemoglobin 7.2 (L) 11.2 - 15.7 GM/DL [facility] Hematocrit 25.0 (L) 34.1 - 44.9 % [facility] MCV 79.6 79.4 - 94.[address] [facility] MCH 22.9 (L) 25.6 - 32.[address] [facility] MCHC 28.8 (L) 32.2 - 35.5 GM/DL [facility] RDW 16.4 (H) 11.7 - 14.4 % [facility] Platelets 339 150 - 450 K/CU MM [facility] MPV 9.6 9.4 - 12.[address] [facility] nRBC 0 0 - 0 /[address] [facility] % Neutros 85 % [facility] % Lymphs 9 % [facility] % Monos 5 % [facility] % Eos 1 % [facility] % Baso 0 % [facility] # Neutros 8.42 (H) 1.56 - 6.13 K/L [facility] # Lymphs 0.84 (L) 1.18 - 3.74 K/L [facility] # Monos 0.49 (H) 0.24 - 0.36 K/L [facility] # Eos 0.07 0.04 - 0.36 K/L [facility] # Baso 0.03 0.01 - 0.08 K/L [facility] Immature 0 0 - 1 % [facility] Granulocytes-[facility] Specimen Blood Performing Organization Address City/[facility] Ph one Number [place] [phone] * aPTT (10/07/2019 11:15 AM WIRE INSPECTOR) PTT 28.3 22.5 - 36.0 seconds [facility] Specimen Blood Performing Organization Address City/[facility] Ph one Number [place] [phone] [place] [address] * Prothrombin time/INR (10/07/2019 11:15 AM WIRE INSPECTOR) Protime 14.7 (H) 11.9 - 14.2 seconds [facility] INR 1.2 <=5.[address] [facility] Specimen Blood Narrative Performed At Effective 02/20/2019: PT Reference Range Change LARY Baptiste [employer] [facility] New: 11.9-14.2Previous: 11.7-14.7 [facility] NTER RECOMMENDED COUMADIN/WARFARIN INR THERA PY RANGES STANDARD DOSE: 2.0-3.0Includes: PRO PHYLAXIS for venous thrombosis, systemic embolization; TREATMENT for venous thro mbosis and/or pulmonary embolus. HIGH RISK: Target INR is 2.5-3.5 for pa tients wiht mechanical heart valves. Performing Organization Address City/State/Zipcode Ph one Number [facility] [address] [address] MEDICAL CENTER after 01/28/2019 Insurance Payer Benefit Subscriber ID Type Phone Address Plan / Group [employer] CIGNA xxxxxxxx [facility] [employer] Contracted NG ALL (Work)
--- OUTSIDE RECORDS SUMMARY | 2020-01-29 19:52 | XMS REPORT | Encounter Summary ---
Author Organization Unknown Address [address] [place] [id number] Phone [phone] Care Team Providers Care Faucet Polisher Name Role Phone Dr. Jose Armando Davis 3 [phone] Eulogio Adams MD 3 [phone] Reason for Visit cellulitis Instructions 1. Morbid obesity learning about healthy weight 2. Cellulitis of lower leg Bactrim DS 800 mg-160 mg tablet 3. Type II diabetes mellitus uncontrolle d type 2 diabetes: care instructions 4. Chronic kidney disease stage 3 5. Essential hypertension 6. Hyperlipidemia high cholesterol: care instructions Discussion Note will rx further course bactrim,await ref errals Plan of Care Patient Instructions meds as directed/leg elevation Reminders Provider Appointments Return to Office on or around 02/08/2020 Eulogio Adams MD Return to Office on or around 02/27/2020 Eulogio Adams MD Lab None recorded. Referral None recorded. Procedures None recorded. Surgeries None recorded. Imaging None recorded. Medications Name Start Date daily Bactrim DS 800 mg-160 mg tablet [...] BMI Blood Pressure 5 ft 7.5 in 299.8 lbs 46.3 kg/m2 (1) 147/63 mm[H g] (2) 137/63 mm[Hg] Results Lab Results Date Name Specimen Result Interpretation Description Value Range Status Address 11/11/2019 Lipid Panel, Serum Low Hdl 36 mg/dL [facility] - Laboratory: [address] [facility] [place] High Triglyceride 171 mg/dL <150 mg/dL [facility] - Laboratory: [address] [place] VLDL (Calculated) 34 mg/dL [facility] - Laboratory: [address] [place]andra cholesterol/HDL Ratio 4.1 mg/dL [facility] - Laboratory: [address] [place] non-HDL Cholesterol (Calculated) 112 mg/dL <160 mg/dL [facility] - Laboratory: [address], [place] Cholesterol 148 mg/dL <200 mg/dL [facility] - Laboratory: [address], [place] LDL (Calculated) 78 mg/dL <130 mg/dL [facility] - Laboratory: [address], [place] 11/11/2019 HbA1C (Hemoglobin a1C), Blood High A1C W/ eag 8.2 % 1.0-5.7 % [facility] - Laboratory: [address] [place] Average Blood Glucose (Calculated) 1 89 mg/dL [facility] - Laboratory: [address], [place] 11/11/2019 Microalbumin/creatinine, Mass Ratio, Urine Microalbumin Random Urine 184 ug/mL Final [facility] - Laboratory: [address] [place] Normal Creatinine Random Urine 146.6 mg/dL 20.0-320.0 mg/dL [facility] - Laboratory: [address] [facility] [place] High Microalbumin/creati nine (Random Urine) Ratio Calculated 125 mcg/mg creat [facility] - [place]: [address]arez Allergies Code Code System Name Reaction Severity [...] Tobacco Smoking Status Never Smoker Past Encounters 11/28/2019 Morbid Obesity; Cellulitis of Lower Leg; Type II Diabetes Mellitus Uncontrolled; Chronic Kidney Disease Stage 3; Essential Hypertension; Hyperlipidemia Eulogio Adams MD: [address] [place] [address], Ph. 11/11/2019 Morbid Obesity; Screening for Osteoporosis; Screening for Malignant Neoplasm of Breast; Vaccine Refused by Patient; Influenza Vaccination Declined; Screening for Malignant Neoplasm of Colon; Essential Hypertension; Hyperlipidemia; Type II Diabetes Mellitus Uncontrolled; Endometrial Carcinoma; Chronic Kidney Disease Stage 3; Cellulitis of Lower Leg Eulogio Adams MD: [address] [place] [address], Ph. History of Present Illness Note:f/u bl fore leg cellulitis,completed course bactrim, good response without total remission-awaiting wound care/endocrinology /nephrology consults<div> compliant with all other meds</div><div> continued supervision oncology- endometrial ca- iv infusions</div><div>
</div> Review of Systems:ROS as noted in the HPI Review of Systems None recorded. Physical Exam General Adult Exam (Female) Reported By: Patient Musculoskeletal:: Extremities: edema; bl forel eg -resolving cellulitis L>R/bl ankle edema 2+
--- NOTE | 2020-01-29 21:58 | Diagnostic Imaging Report ---
EXAM: Abdomen Radiograph 2 View(s), supine and upright INDICATION: Abdominal pain, nausea, constipation COMPARISON: None FINDINGS: No abnormalities in the lower chest. Cholecystectomy clips. Enlarged hepatic and splenic shadows.. No lines or tubes. Greater than average colonic stool burden No dilated loops of small bowel. Vascular calcifications. No abnormal soft tissue masses. No pneumoperitoneum. No acute osseous abnormality. Degenerative changes in the lumbar spine and pelvis. Numerous pelvic phleboliths. IMPRESSION: Nonobstructive bowel gas pattern. Greater than average colonic stool burden, correlate for constipation. Hepatosplenomegaly. Signed by: Papi Morris DO on 01/29/2020 9:55 PM
== END 2020-01-29 22:28 | disposition home or self-care (01) ==
LOC: ER 19:50
DX: R10.30 Lower abdominal pain, unspecified (principal); K59.00 Constipation, unspecified; I10 Essential (primary) hypertension; E11.9 Type 2 diabetes mellitus without complications; Z79.899 Other long term (current) drug therapy; Z85.42 Personal history of malignant neoplasm of other parts of uterus
CPT/HCPCS: 74019; 99283

== ENCOUNTER 2020-03-31 09:39 | Observation (INO) | payer MEDICARE, OTHER ==
[~2020-03-31] VITALS: Ht 172.7 cm; Wt 137.9 kg
--- NOTE | 2020-03-31 09:50 | Emergency Department Note ---
History of Present Illnes History of Present Illness Chief Complaint: General Medicine Complaints History of Present Illness This is a 70 year old female . 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 Any updates have been documented here. Past Medical History Recent Fever: No Clinical Suspicion of Infectio: No New/Unexplained Change in Ment: No Past Medical History: Hypertension, Diabetes Other Medical History: PORT A CATH RIGHT CHEST Past Surgical History: Cholecysctectomy, Appendectomy Social History Smoking Cessation: Never Smoker Counseling Performed: No Alcohol Use: Social Any Illegal Drug Use: No TB Exposure/Symptoms: No Physically hurt or threatened: No Family History Family history of heart diseas: Yes Other Last Tetanus: UTD Any Pre-Existing Lines (PICC,: No Is patient up to date on immun: Yes Review of Systems ROS Narrative PATIENT IS A 70 YEAR OLD FEMALE THAT PRESENTS VIA EMS FOR WEAKNESS X 1 DAY THAT IS WORSE TODAY. ANATOLY CALLED EMS WHEN SHE WAS UNABLE TO GET UP TO TAKE HER MEDS Review of Systems Constitutional: Reports weakness EENTM: Reports no symptoms Cardiovascular: Reports edema (2+ PITTING EDEMA TO BLE) Respiratory: Reports no symptoms Gastrointestinal: Reports no symptoms Genitourinary: Reports no symptoms Musculoskeletal: Reports no symptoms Integumentary: Reports no symptoms Neurological: Reports no symptoms Psychological: Reports no symptoms Endocrine: Reports no symptoms Hematological/Lymphatic: Reports no symptoms Physical Exam Related Data Allergies: Coded Allergies: morphine (Verified Allergy, Intermediate, 01/29/20) Vital signs reviewed: Yes Physical Exam CONSTITUTIONAL Constitutional: Present well-developed, Present well-nourished, Present obese HENT HENT: Present normocephalic, Present atraumatic, Present nose normal HENT L/R: Present left TM normal, Present right TM normal EYES Eyes: Reports PERRL, Reports conjunctivae normal NECK Neck: Present ROM normal PULMONARY Pulmonary: Present effort normal, Present other (DECREASED BASES) CARDIOVASCULAR Cardiovascular: Present regular rhythm, Present LLE edema, Present RLE edema GASTROINTESTINAL Abdominal: Present soft, Present nontender GENITOURINARY SKIN Skin: Present warm, Present erythema MUSCULOSKELETAL Musculoskeletal: Present ROM normal NEUROLOGICAL Neurological: Present alert, Present oriented x 3 PSYCHOLOGICAL Psychological: Present mood/affect normal Results Laboratory Lab results reviewed: Yes Imaging Imaging results reviewed: Yes Diagnostics Tests Diagnostic test(s) reviewed: Yes Procedures 12 Lead ECG Interpretation ECG Interpretation : ECG: ECG 1 Business Analysis Specialist: Interpreted by ED physician Date: Mar 31, 2020 Time: 09:54 Rhythm: bundle branch block Rate: normal BPM: 75 QRS axis: left Conduction: left bundle branch block ST segments normal: Yes Assessment & Plan Medical Decision Making MDM Anemia, symptomatic SOB Denies CP Admitted to Dr Lane. Reassessment Reassessment time: 11:36 Reassessment Patient in NAD, awaiting room assignmnet Assessment & Plan Final Impression: (1) Anemia (2) Weakness Depart Disposition: ADMITTED STEVAN LEBRON Mar 31, 2020 09:49
--- NOTE | 2020-03-31 10:27 | Diagnostic Imaging Report ---
EXAMINATION: CHEST SINGLE (PORTABLE) INDICATION: Weakness COMPARISON: None FINDINGS: LINES/TUBES:Right chest port terminates in the SVC. EKG leads overlie the chest. LUNGS:The lungs are well-inflated. No focal consolidation or pulmonary edema. PLEURA:No pleural effusion or pneumothorax. MEDIASTINUM:The cardiomediastinal silhouette appears normal in size and shape. Atherosclerotic calcifications of the thoracic aorta. BONES/SOFT TISSUES:No acute osseous injury. ABDOMEN:No free air under the diaphragm. IMPRESSION: No focal pneumonia or pulmonary edema. Signed by: Monie Carpenter MD on 03/31/2020 10:24 AM
[2020-03-31 10:38] LABS: BASOPHILS % 0.5 % (0.0-1.0); EOSINOPHILS % 0.5 % (0.0-6.0); LYMPHOCYTES # (AUTO) 0.7 (1.0-3.2); LYMPHOCYTES % 15.2 % (18.0-39.1); MEAN CORPUSCULAR HEMOGLOBIN 32.4 pg (28-32); MEAN CORPUSCULAR HGB CONC 32.5 g/dL (31-35); MEAN CORPUSCULAR VOLUME 99.5 fL (81-99); MONOCYTES # (AUTO) 0.4 (0.2-0.8); MONOCYTES % 9.3 % (4.4-11.3); NEUTROPHILS # (AUTO) 3.2 (2.1-6.9); NEUTROPHILS % 72.9 % (38.7-80.0); PLATELET COUNT 110 x10e3/uL (140-360); RED CELL DISTRIBUTION WIDTH 17.4 % (11.7-14.4)
[2020-03-31 10:46] LABS: INR 0.96; PROTHROMBIN TIME 13.3 seconds (11.9-14.5)
[2020-03-31 10:47] LABS: PARTIAL THROMBOPLASTIN TIME 22.8 seconds (23.8-35.5)
[2020-03-31 10:51] LABS: HEMATOCRIT 20.9 % (34.2-44.1); HEMOGLOBIN 6.8 g/dL (12.0-16.0)
[2020-03-31 10:53] LABS: ALBUMIN 2.9 g/dL (3.5-5.0); ALBUMIN/GLOBULIN RATIO 0.7 (0.8-2.0); ANION GAP 12.4 mmol/L (8-16); CALCIUM 8.6 mg/dL (8.4-10.2); CREATININE, SERUM 1.18 mg/dL (0.57-1.11); POTASSIUM 4.4 mmol/L (3.5-5.1)
[2020-03-31] MEDS ORDERED: ACETAMINOPHEN 325 MG TAB PO STA (10:53)
[2020-03-31 10:59] LABS: CREATINE KINASE MB 2.6 ng/mL (0-5.0)
[2020-03-31] MEDS ORDERED: INSULIN REGULAR, HUMAN 100 UNIT/1 ML 3ML VIAL SQ ONE (11:00)
[2020-03-31] MEDS ORDERED: DIPHENHYDRAMINE HCL INJ 50 MG/ML VIAL IV ONE (11:00)
[2020-03-31] MEDS ORDERED: SODIUM CHLORIDE 0.9% 250ML 250 ML IV ONE (11:00)
[2020-03-31] MEDS ORDERED: FAMOTIDINE 20 MG/2 ML VIAL IV ONE (11:00)
[2020-03-31 11:10] LABS: BAND NEUTROPHILS % (MANUAL) 3 %; LYMPHOCYTES % (MANUAL) 15 % (19-48); MONOCYTES % (MANUAL) 10 % (3.4-9.0); NEUTROPHILS % (MANUAL) 72 % (40-74)
[2020-03-31] MEDS ORDERED: ONDANSETRON HCL INJ 2MG/ML 2ML 2 MG/ML VIAL IV PRN (11:15)
--- NOTE | 2020-03-31 13:49 | NUR ---
H&P cc: fatigue HPI: 70yoF, PCP , developed fatigue, found to have severe anemia. Pt admits to receiving chemo for ovarian cancer, which is ongoing treatment, with r esulting reduction in tumor mass and vaginal bleeding associated with it. No melena/hematochezia/hematemesis. PMH: Ovarian cancer on chemo, DM2, HTN, chronic vaginal bleeding due to ovarian cancer PSHx: appendecotmy, cholecystectomy, port-a-cath right chest Allergies; see emr FH/SH; ; no cigs; 6 kids meds; see MAR ROS: no f/c/s/N/V/D/MENCHACA/cp/sob/skin rash/back pain/confusion/vision changes v/s; revd PE tired appearing; right chest port-a-cath palpable anicteric ns1s2; 3/6 murmur-ejection mod bs soft nt nd no e/t skin dry n. affect a&ox3; moran labs/meds revd A/P: SEvere anemia- check anemia panel; famotidien; give blood; hematology consult Hx ovarian cancer Vaginal bleeding due to chemo for ovarian cancer- chronic Severe obesity- check hab1c/lipids DM2-as above BMI 46 Fritz- IVF Pancytopenia- due to chemo/cancer Prop: scd; dispo: f/u labs; d/c later if Hb better; refer to her Resident Physician In Radiology outpt; cont with Onc outpt. Humza Lane MD, PhD.
[2020-03-31] MEDS: SODIUM CHLORIDE 0.9% 1000ML 1,000 ML IV SCH ×2 (14:18→21:15)
[2020-03-31 15:00] LABS: FERRITIN 206.05 ng/mL (4.63-204.00)
[2020-03-31] MEDS ORDERED: CARVEDILOL25 MG PO (16:45)
[2020-03-31] MEDS ORDERED: NIFEDIPINE ER30 MG PO (16:45)
[2020-03-31] MEDS ORDERED: LANTUS 3ML100 UNITS/ SQ (16:45)
[2020-03-31] MEDS ORDERED: ESIDRIX25 MG PO (16:45)
[2020-03-31] MEDS ORDERED: PROMETHAZINE HC25 M1 (16:45)
[2020-03-31] MEDS ORDERED: LOSARTAN POTAS100 MG PO (16:45)
[2020-03-31] MEDS ORDERED: FREESTYLE LITE1 EAC1 (16:45)
[2020-03-31] MEDS ORDERED: DOXAZOSIN MESYLA2 MG PO (16:45)
[2020-03-31] MEDS ORDERED: ONDANSETRON HCL4 MG (16:45)
[2020-03-31] MEDS ORDERED: NOVOLOG100 UNITS1 (16:45)
[2020-03-31] MEDS ORDERED: DIAZEPAM5 MG (16:45)
[2020-03-31 17:45] VITALS: BP 179/63
[2020-03-31 17:46] VITALS: BP 179/63
[2020-03-31] MEDS ORDERED: ASPIRIN81 MG PO (17:54)
[2020-03-31] MEDS: FAMOTIDINE 20 MG/2 ML VIAL IV SCH (18:04)
[2020-03-31 18:11] VITALS: BP 179/63
--- NOTE | 2020-03-31 18:15 | NUR ---
PATIENT ARRIVED TO ROOM 101, PATIENT IS IN STABLE CONDITION. ORIENTED TO ROOM AND POLICIES. CALL LIGHT WITHIN REACH. BED IN THE LOWEST POSITION.
--- NOTE | 2020-03-31 18:16 | NUR ---
PATIENT'S IV STARTED STARTED LICKING AFTER PEPCID ADMINISTERED.
[2020-03-31] MEDS ORDERED: DEXTROSE 50% SYRINGE 50 ML IV PRN (18:30)
--- NOTE | 2020-03-31 18:41 | NUR ---
ATTEMPTED TO START IV X1, UNSUCCESSFUL. ASKED CROSSING GATEMAN TO ATTEMPT A SECOND TIME.
[2020-03-31] MEDS: CARVEDILOL 12.5 MG TAB PO SCH (18:42)
[2020-03-31] MEDS: NIFEDIPINE CR 30 MG TAB PO SCH (18:43)
--- NOTE | 2020-03-31 18:57 | NUR ---
DEFENCE INTELLIGENCE ANALYST OBTAINED LEFT ANTECUBITAL 20G.
--- NOTE | 2020-03-31 18:57 | NUR ---
BEDSIDE SHIFT REPORT GIVEN TO ONCOMING NURSE. PATIENT IS RESTING IN BED, NO ACUTE DISTRESS NOTED. CALL LIGHT WITHIN REACH. BED IN THE LOWEST POSITION.
[2020-03-31 20:00] VITALS: BP 144/49
[2020-03-31] MEDS ORDERED: SODIUM CHLORIDE 0.9% 250ML 250 ML ONE (20:14)
[2020-03-31] MEDS: INSULIN LISPRO 100 UNIT/1 ML 3ML VIAL SQ SCH (20:28)
[2020-03-31 21:00] VITALS: BP 144/49
--- NOTE | 2020-03-31 22:46 | NUR ---
Blood Admin: 2015 hours First unit started. No adverse reactions noted within the first 15 minutes. VS stable. Afebrile. Asymptomatic subjectively. Denies any distress. Denies pain. Stable. Will continue to monitor. Second unit will be administered after the first unit is complete to stabilize hemodynamically.
[2020-03-31] MEDS ORDERED: ACETAMINOPHEN 325 MG TAB PO PRN (23:00)
[2020-04-01] VITALS (8 sets, daily range): BP systolic 150–176; BP diastolic 46–104
[2020-04-01 04:55] LABS: BASOPHILS % 0.2 % (0.0-1.0); EOSINOPHILS % 0.6 % (0.0-6.0); HEMATOCRIT 24.8 % (34.2-44.1); HEMOGLOBIN 8.1 g/dL (12.0-16.0); LYMPHOCYTES % 20.6 % (18.0-39.1); MEAN CORPUSCULAR HEMOGLOBIN 31.5 pg (28-32); MEAN CORPUSCULAR HGB CONC 32.7 g/dL (31-35); MONOCYTES # (AUTO) 0.5 (0.2-0.8); MONOCYTES % 9.5 % (4.4-11.3); NEUTROPHILS # (AUTO) 3.2 (2.1-6.9); NEUTROPHILS % 68.3 % (38.7-80.0); PLATELET COUNT 108 x10e3/uL (140-360); RED BLOOD COUNT 2.57 x10e6/uL (3.6-5.1); RED CELL DISTRIBUTION WIDTH 17.3 % (11.7-14.4)
[2020-04-01 05:03] LABS: MEAN CORPUSCULAR VOLUME 96.5 fL (81-99)
[2020-04-01 05:05] LABS: PROTHROMBIN TIME 13.8 seconds (11.9-14.5)
[2020-04-01 05:12] LABS: ALBUMIN 2.6 g/dL (3.5-5.0); ALBUMIN/GLOBULIN RATIO 0.7 (0.8-2.0); ANION GAP 10.1 mmol/L (8-16); CALCIUM 8.8 mg/dL (8.4-10.2); CREATININE, SERUM 1.09 mg/dL (0.57-1.11); PHOSPHORUS 3.4 MG/DL (2.3-4.7); POTASSIUM 4.1 mmol/L (3.5-5.1)
[2020-04-01] MEDS: SODIUM CHLORIDE 0.9% 1000ML 1,000 ML IV SCH ×2 (07:15→17:15)
[2020-04-01] MEDS: DOXAZOSIN MESYLATE 2 MG TAB PO SCH (08:52)
[2020-04-01] MEDS: FAMOTIDINE 20 MG/2 ML VIAL IV SCH ×2 (08:52→16:32)
[2020-04-01] MEDS: INSULIN LISPRO 100 UNIT/1 ML 3ML VIAL SQ SCH ×4 (08:52→21:55)
[2020-04-01] MEDS: NIFEDIPINE CR 30 MG TAB PO SCH ×2 (08:53→21:58)
[2020-04-01] MEDS: CARVEDILOL 12.5 MG TAB PO SCH ×2 (08:53→21:58)
--- NOTE | 2020-04-01 12:19 | NUR ---
D/C summary SEvere anemia- check anemia panel; famotidien; give blood; hematology consult Hx ovarian cancer Vaginal bleeding due to chemo for ovarian cancer- chronic SEcondary Dx; Severe obesity- check hab1c/lipids DM2-as above BMI 46 Fritz- IVF; Likely CKD3 Pancytopenia- due to chemo/cancer Prop: scd; dispo: f/u labs; d/c later if Hb better; refer to her Pin Sorter And Bagger outpt; cont with Onc outpt. Please f/u with PCP 2 days; If bleeding worsens, or you develop dizziness, return to hospital Your fisher crab in 2 days Your oncologist in 1 week d/c>35mins stable; d/c home Humza Lane MD, PhD.
[2020-04-01] MEDS ORDERED: ONDANSETRON HCL 4 MG ORAL DISINTEGRATING TAB PO PRN (12:45)
--- NOTE | 2020-04-01 14:09 | NUR ---
PATIENT SEEN PER WOUND CARE CONSULT FOR RECOMMENDATION FOR CARE OF DRY PATCHY AREAS TO BILATERAL LOWER LEGS R/T CHEMOTHERAPY RECOMMENDATION IS FOR USE OF REMEDY MOISTURIZER NEEDED TO AREAS OF CONCERN Addendum: 04/01/20 at 1412 by Brett Langley RN Amended: Links added.
--- NOTE | 2020-04-01 15:47 | NUR ---
Patient states that she has no one to come get her or anyone at home that can be there today to assist her as she is still feeling very weak. I notified Dr. Lane of patient status. He said OK to keep patient until tomorrow but needs to dc in the morning.
[2020-04-02] VITALS: BP 167/54
[2020-04-02] MEDS: SODIUM CHLORIDE 0.9% 1000ML 1,000 ML IV SCH (03:15)
[2020-04-02 04:00] VITALS: BP 170/61
[2020-04-02 06:52] LABS: HEMOGLOBIN 8.2 g/dL (12.0-16.0)
[2020-04-02 07:45] VITALS: BP 170/61
[2020-04-02] MEDS: INSULIN LISPRO 100 UNIT/1 ML 3ML VIAL SQ SCH (08:00)
[2020-04-02 08:11] VITALS: BP 187/67
[2020-04-02] MEDS: NIFEDIPINE CR 30 MG TAB PO SCH (08:46)
[2020-04-02] MEDS: CARVEDILOL 12.5 MG TAB PO SCH (08:46)
[2020-04-02] MEDS: DOXAZOSIN MESYLATE 2 MG TAB PO SCH (08:46)
--- NOTE | 2020-04-02 10:52 | NUR ---
D/C summary SEvere anemia- check anemia panel; famotidien; give blood; hematology consult Hx ovarian cancer Vaginal bleeding due to chemo for ovarian cancer- chronic SEcondary Dx; Severe obesity- check hab1c/lipids DM2-as above BMI 46 Fritz- IVF; Likely CKD3 Pancytopenia- due to chemo/cancer Prop: scd; dispo: f/u labs; d/c later if Hb better; refer to her Quantitative Analyst Marketing outpt; cont with Onc outpt. Please f/u with PCP 2 days; If bleeding worsens, or you develop dizziness, return to hospital Your nurse monitoring in 2 days Your oncologist in 1 week d/c>35mins stable; d/c home ADDENDUM- pt refused to leave yesterday; Again check H/H today, stable- d/c order placed again; d/w patient and nursing; Humza Lane MD, PhD.
--- NOTE | 2020-04-02 11:10 | NUR ---
Discharge instructions were given to the patient, she verbalized understanding. She has a f/u appointment with her oncologist next week.
== END 2020-04-02 11:15 | disposition home or self-care (01) ==
LOC: ER 10:45 → ERHOLD 11:04 → MED/SURG 17:00
PROVIDERS: ADMIT Internal Medicine; ATTEND Internal Medicine
DX: D64.9 Anemia, unspecified (principal); Z11.59 Encounter for screening for other viral diseases; E66.01 Morbid (severe) obesity due to excess calories; Z68.42 Body mass index [BMI] 45.0-49.9, adult; E11.22 Type 2 diabetes mellitus with diabetic chronic kidney disease; I12.9 Hypertensive chronic kidney disease with stage 1 through stage 4 chronic kidney disease, or unspecified chronic kidney disease; N18.3 Chronic kidney disease, stage 3 (moderate); D61.818 Other pancytopenia; N93.8 Other specified abnormal uterine and vaginal bleeding; Z85.43 Personal history of malignant neoplasm of ovary; Z85.89 Personal history of malignant neoplasm of other organs and systems; D61.810 Antineoplastic chemotherapy induced pancytopenia; C56.9 Malignant neoplasm of unspecified ovary; N17.9 Acute kidney failure, unspecified
CPT/HCPCS: 36415 ×3; 71045; 80053 ×2; 82550; 82553; 82607; 82728; 82948 ×3; 83540; 83605 ×2; 83735; 83880; 84100; 84466; 84484; 85014; 85018; 85025 ×2; 85610 ×2; 85730; 86850; 86900; 86920; 87040; 87635; 93005; 99284; G0378 ×3; J1200; J1817; J7030; J7050; P9016